=== PATIENT | male | born 1950 | race Caucasian/White ===

== ENCOUNTER 2021-01-10 15:10 | Emergency (ER) | payer MEDICARE, OTHER ==
[2021-01-10] MEDS ORDERED: ROBAXIN750 MG PO (18:54)
[2021-01-10] MEDS ORDERED: PREDNISONE20 MG PO (18:54)
== END 2021-01-10 19:06 | disposition home or self-care (01) ==
LOC: FER 15:10
DX: M54.41 Lumbago with sciatica, right side (principal); G89.29 Other chronic pain; F17.200 Nicotine dependence, unspecified, uncomplicated
CPT/HCPCS: 99283